=== PATIENT | male | born 1990 | race Caucasian/White ===

== ENCOUNTER 2020-08-19 16:25 | Emergency (ER) | payer MEDICAID ==
[~2020-08-19] VITALS: Ht 165.1 cm; Wt 83.9 kg
[2020-08-19 16:36] VITALS: BP 122/70
[2020-08-19] MEDS ORDERED: IBUPROFEN 600 MG TAB PO ONE (17:15)
[2020-08-19] MEDS ORDERED: IBUP-1842 PO (17:27)
[2020-08-19 17:40] VITALS: BP 124/73
== END 2020-08-19 17:46 | disposition home or self-care (01) ==
LOC: MED 16:25
DX: S62.336A Displaced fracture of neck of fifth metacarpal bone, right hand, initial encounter for closed fracture (principal); Z79.899 Other long term (current) drug therapy; Y04.0XXA Assault by unarmed brawl or fight, initial encounter; Y93.71 Activity, boxing; Y92.89 Other specified places as the place of occurrence of the external cause; Y99.8 Other external cause status
CPT/HCPCS: 73130; 99283